=== PATIENT | male | born 1945 | race Caucasian/White ===

== ENCOUNTER 2022-04-03 10:17 | Observation (INO) | payer MEDICARE, BC ==
[2022-04-02 13:08] LABS: BASOPHILS % (AUTO) 0.6 % (0-1); EOSINOPHILS % (AUTO) 0.4 % (0-6); HEMATOCRIT 39.6 % (42.0-52.0); HEMOGLOBIN 13.3 g/dl (14.0-17.9); LYMPHOCYTES # (AUTO) 0.7 X10'3 (1.1-4.8); LYMPHOCYTES % (AUTO) 12.9 % (21-51); MEAN CORPUSCULAR HEMOGLOBIN 34.6 PG (27.0-31.0); MEAN CORPUSCULAR HGB CONC 33.5 g/dL (33.0-36.5); MEAN CORPUSCULAR VOLUME 103.3 FL (78-98); MEAN PLATELET VOLUME 9.7 FL (7.4-10.4); MONOCYTES # (AUTO) 0.6 X10'3 (0-0.9); MONOCYTES % (AUTO) 11.4 % (2-12); NEUTROPHILS % (AUTO) 74.7 % (42-75); PLATELET COUNT 110 X10'3 (140-440); RED BLOOD COUNT 3.84 X10'6 (4.70-6.10); RED CELL DISTRIBUTION WIDTH 14.4 % (11.5-14.5); WHITE BLOOD COUNT 5.3 X10'3 (4.5-11.0)
[2022-04-02 13:28] LABS: APTT 28 SECONDS (22-32)
[2022-04-02 13:30] LABS: ALBUMIN 3.6 G/DL (3.4-5.0); ANION GAP 8 (8-16); BLOOD UREA NITROGEN 20 MG/DL (7-18); BUN/CREATININE RATIO 15.5 (5.4-32.0); CALCIUM 9.1 MG/DL (8.5-10.1); CHLORIDE 106 MMOL/L (99-107); CREATININE 1.29 MG/DL (0.60-1.10); GLUCOSE 121 MG/DL (70-104); POTASSIUM 4.4 MMOL/L (3.5-5.1); SODIUM 142 MMOL/L (135-145); TOTAL CARBON DIOXIDE 27.6 MMOL/L (24-32); eGFR 54 ML/MIN
[~2022-04-03] VITALS: Ht 188 cm; Wt 91.5 kg
[2022-04-03] VITALS (12 sets, daily range): BP systolic 113–143; BP diastolic 66–89
[2022-04-03] MEDS ORDERED: diphenhydrAMINE 25mg capsule PO PRN (10:30)
[2022-04-03] MEDS ORDERED: sodium bicarbonate (8.4%) inj. 150 ML in dextrose 5%-water 1,000 ML IV ONE (10:30)
[2022-04-03] MEDS ORDERED: LORazepam 0.5 MG tablet PO PRN (10:30)
[2022-04-03] MEDS ORDERED: APIX5TAB3 PO (10:44)
[2022-04-03] MEDS ORDERED: UBID100C16 PO (10:44)
[2022-04-03] MEDS ORDERED: GLUC-95 PO (10:44)
[2022-04-03] MEDS ORDERED: EZET1TAB37 PO (10:44)
[2022-04-03] MEDS ORDERED: FURO-150 PO (10:44)
[2022-04-03] MEDS ORDERED: AMLO2.5T4 PO (10:44)
[2022-04-03] MEDS ORDERED: DABI150C PO (10:44)
[2022-04-03] MEDS ORDERED: ACYC-129 PO (10:44)
[2022-04-03] MEDS ORDERED: MULT-1085 PO (10:44)
[2022-04-03] MEDS ORDERED: LOP12.5T PO (10:44)
[2022-04-03] MEDS: normal saline 1,000 ML IV SCH ×2 (11:52→21:00)
[2022-04-03] MEDS: acetylcysteine 200 MG/ml 4ml vial PO PRN ×3 (11:53→19:37)
[2022-04-03] MEDS ORDERED: verapamil 2.5 mg/ml inj IV ONE (12:49)
[2022-04-03] MEDS ORDERED: midazolam 1 mg/ML 2ml injection ONE (12:49)
[2022-04-03] MEDS ORDERED: nitroGLYCERIN-Tridil 50MG/D5W 250 ML IV ONE (12:49)
[2022-04-03] MEDS ORDERED: iohexol 350MG/ML 100ml bottle IV ONE ×4 (12:50→14:40)
[2022-04-03] MEDS ORDERED: heparin 1,000 UNITS/NS 500ml 500 ML ONE (12:50)
[2022-04-03] MEDS ORDERED: heparin 1,000unit/ml 10ml vial 10 ML ONE (12:50)
[2022-04-03] MEDS ORDERED: fentaNYL/PF 50MCG/1 ML 2ML syringe ONE (12:50)
[2022-04-03] MEDS ORDERED: LIDOcaine 1%/PF 5ML 10 MG/ML VIAL ONE (12:51)
[2022-04-03] MEDS ORDERED: HEPARIN SOD,PORK IN 0.45% NACL 250 ML IV ONE (14:00)
[2022-04-03] MEDS ORDERED: clopidogrel 300mg tablet ONE ×2 (14:33→14:57)
[2022-04-03] MEDS ORDERED: furosemide 40mg/4ml inj ONE (14:50)
[2022-04-03 15:15] LABS: ISTAT HGB ART 12.2 g/dl (14.0-18.0); ISTAT Hct ART 36 %PCV (42-52); ISTAT O2 SATURATION ARTERIAL 94 % (95-98); ISTAT SOURCE ART
[2022-04-03 15:31] LABS: ISTAT Hct MIX 36 %PCV (42-52); ISTAT O2 SATURATION MIX VENOUS 53 % (60-80); ISTAT SOURCE VEN
--- NOTE | 2022-04-03 19:50 | NUR ---
Patient continues to bleed when any air is released from the vasc band. Added an additional 2ml air to band. Called Dr. Lang to notify him. Orders to keep patient overnight and slowly release air out of vasc band throughout the night.
--- NOTE | 2022-04-03 20:38 | NUR ---
Gave report to Giulia Platt RN. Patient going to room 3023A.
--- NOTE | 2022-04-03 21:00 | NUR ---
PATIENT ADMITTED TO ROOM 3023A FROM SHORT STAY POST HEART CATH. PLACED COMFORTABLE IN BED. VITAL SIGNS MONITORED.
[2022-04-04] MEDS ORDERED: sodium bicarbonate (8.4%) inj. 150 ML in dextrose 5%-water 1,000 ML IV ONE ×2 (00:50→06:00)
[2022-04-04 02:00] VITALS: BP 126/76
[2022-04-04] MEDS: normal saline 1,000 ML IV SCH (04:49)
[2022-04-04] MEDS ORDERED: normal saline 1,000 ML IV SCH (05:30)
[2022-04-04] MEDS: acyclovir 200 MG capsule PO SCH ×2 (05:38→10:00)
[2022-04-04] MEDS ORDERED: LORazepam 0.5 MG tablet PO PRN (06:00)
[2022-04-04] MEDS ORDERED: acetylcysteine 200 MG/ml 4ml vial PO ONE (06:00)
[2022-04-04] MEDS ORDERED: diphenhydrAMINE 25mg capsule PO PRN (06:00)
--- NOTE | 2022-04-04 06:40 | NUR ---
Problems reprioritized. Patient report given, questions answered & plan of care reviewed with DARRELL PETERSON.
[2022-04-04 07:09] LABS: ALBUMIN 3.3 G/DL (3.4-5.0); ANION GAP 8 (8-16); BLOOD UREA NITROGEN 19 MG/DL (7-18); BUN/CREATININE RATIO 17.8 (5.4-32.0); CALCIUM 8.8 MG/DL (8.5-10.1); CHLORIDE 103 MMOL/L (99-107); CREATININE 1.07 MG/DL (0.60-1.10); GLUCOSE 102 MG/DL (70-104); POTASSIUM 3.4 MMOL/L (3.5-5.1); SODIUM 141 MMOL/L (135-145); TOTAL CARBON DIOXIDE 30.5 MMOL/L (24-32); eGFR 67 ML/MIN
[2022-04-04] MEDS ORDERED: GLUCOSAMINE HCL PO SCH (08:00)
[2022-04-04] MEDS ORDERED: metoprolol tartrate 12.5mg (1/2 tablet) PO SCH (08:00)
[2022-04-04] MEDS ORDERED: multivitamins, therapeutics tablet PO SCH (08:00)
[2022-04-04] MEDS ORDERED: amLODIPine 2.5mg tablet PO SCH (08:00)
[2022-04-04] MEDS ORDERED: apixaban 5mg tablet PO SCH (08:00)
[2022-04-04] MEDS ORDERED: furosemide 20MG tablet PO SCH (08:00)
[2022-04-04] MEDS ORDERED: CHONDR SU A NA PO SCH (08:00)
[2022-04-04] MEDS ORDERED: Ubidecarenone (Coq-10) 200 MG PO SCH (08:00)
[2022-04-04 08:36] VITALS: BP_SYST 136
[2022-04-04] MEDS ORDERED: potassium Cl 20 mEq SR tablet PO STA (09:07)
[2022-04-04] MEDS ORDERED: SACU1TAB PO (09:53)
[2022-04-04] MEDS ORDERED: SPIR25TA5 PO (09:53)
[2022-04-04] MEDS ORDERED: ROSU40TA PO (09:53)
[2022-04-04] MEDS ORDERED: FURO-149 PO (09:53)
[2022-04-04] MEDS ORDERED: CLOP75TA15 PO (09:53)
[2022-04-04] MEDS ORDERED: clopidogrel 75mg tablet PO STA (10:04)
[2022-04-04] MEDS ORDERED: ASPI81TA52 PO (10:07)
[2022-04-04] MEDS: furosemide 40mg/4ml inj IV ONE ×2 (10:25→11:09)
== END 2022-04-04 13:50 | disposition home or self-care (01) ==
LOC: SSTAY O 10:17 → PCU 3S 10:18 → PAS 20:07 → SSTAY O 20:07 → PCU 3S 04-04 11:13 → UNDOADMOB 04-04 11:13 → SSTAY O 04-04 12:41 → PCU 3S 04-04 12:41
PROVIDERS: ADMIT Internal Medicine Cardiovascular Disease; ATTEND Internal Medicine Cardiovascular Disease
DX: I11.0 Hypertensive heart disease with heart failure (principal); I25.10 Atherosclerotic heart disease of native coronary artery without angina pectoris; I50.22 Chronic systolic (congestive) heart failure; I48.91 Unspecified atrial fibrillation; E78.5 Hyperlipidemia, unspecified; K21.9 Gastro-esophageal reflux disease without esophagitis; R73.03 Prediabetes; Z79.01 Long term (current) use of anticoagulants; Z79.899 Other long term (current) drug therapy
CPT/HCPCS: 36415; 76937; 80048; 82803; 83880; 85014; 85025; 85347; 85610; 85730; 87081; 93005; 93458; 96365; 96366; 96375; A6258; C1725; C1751; C1769; C1874; C1892; C1894; C9600; G0378; J1644; J1940; J2250; J3010; J3490; J7030; J7070; Q0163; Q9967; 99152; 99153; A5120; A6449; A6455